=== PATIENT | male | born 1970 | race African-American/Black ===

== ENCOUNTER 2022-06-22 15:01 | Emergency (ER) | payer MEDICAID ==
[~2022-06-22] VITALS: Ht 182.9 cm; Wt 94.3 kg
[2022-06-22 15:03] VITALS: BP 140/89
[2022-06-22] MEDS ORDERED: BACITRACIN OINT 500 UNITS/GM PKT TP ONE (15:20)
[2022-06-22] MEDS ORDERED: SULF-58 PO (15:27)
[2022-06-22 15:32] VITALS: BP 140/89
== END 2022-06-22 15:32 | disposition home or self-care (01) ==
LOC: MED 15:01
DX: S81.801A Unspecified open wound, right lower leg, initial encounter (principal); J45.909 Unspecified asthma, uncomplicated; Z79.899 Other long term (current) drug therapy; W22.8XXA Striking against or struck by other objects, initial encounter; Y93.89 Activity, other specified; Y92.89 Other specified places as the place of occurrence of the external cause; Y99.8 Other external cause status
CPT/HCPCS: 99283